=== PATIENT | female | born 1955 | race Caucasian/White ===

== ENCOUNTER → 2016-07-05 | Outpatient (CLI) | payer OTHER ==
[~2016-07-05] MED LIST: ASPIRIN 32325 MG/TAB PO; GLUCOPHAGE500 MG/TAB PO; LEVAQUIN 5500 MG/TA1 PO; LOPID 600M600 MG/TAB PO; MIRALAX PA17 GM/Dose PO; MULTI VITAMINS1 TAB PO; NORCO 325 MG-7.1 TAB PO; PEPCID AC 10MG10 MG PO; PRINIVIL40 MG PO; PROFERRIN ES12 MG PO; PROTONIX20 MG PO; ROXICODONE 55 MG/TAB PO; TYLENOL 500MG500 MG PO; ULTRAM 50MG TAB50 MG PO; VITAMIN C500 MG PO; ZOFRAN ODT4 MG PO
== END ==
LOC: MC.RAD 14:00
DX: Z12.31 Encounter for screening mammogram for malignant neoplasm of breast (principal)

== ENCOUNTER → 2017-08-14 | Outpatient (CLI) | payer BC | LOC: MC.RAD 13:18 | DX: Z12.31 Encounter for screening mammogram for malignant neoplasm of breast (principal) ==

== ENCOUNTER → 2017-08-27 | Outpatient (CLI) | payer BC ==
[2017-08-27 10:34] LABS: HEMATOCRIT 42.7 % (37.0-47.0); HEMOGLOBIN 14.1 g/dl (12.5-16.0); MEAN CELL VOLUME 86 fl (80.0-100.0); MEAN CORPUSCULAR HEMOGLOBIN 29 pg (27.0-31.0); MEAN CORPUSCULAR HGB CONC 33 g/dl (33.0-37.0); MEAN PLATELET VOLUME 8.7 fl (7.4-10.4); PLATELET COUNT 278 K/mm3 (130-400); RED BLOOD COUNT 4.95 M/mm3 (4.10-5.30); REDCELL DISTRIBUTION WIDTH-CV 13.6 % (11.5-14.5)
[2017-08-27 10:55] LABS: ERYTHROCYTE SEDIMENTATION RATE 8 mm/hr (0-30)
== END ==
LOC: COL.LAB 09:32
PROVIDERS: Orthopaedic Surgery
DX: M25.462 Effusion, left knee (principal); Z96.652 Presence of left artificial knee joint

== ENCOUNTER → 2018-08-15 | Outpatient (CLI) | payer BC | LOC: MC.RAD 08:15 | DX: Z12.31 Encounter for screening mammogram for malignant neoplasm of breast (principal) ==

== ENCOUNTER → 2019-12-11 | Outpatient (CLI) | payer BC | LOC: MC.RAD 08:08 | DX: Z12.31 Encounter for screening mammogram for malignant neoplasm of breast (principal) ==

== ENCOUNTER 2021-01-23 17:00 | Outpatient (RCR) | payer BC | END 2021-02-19 | disposition home or self-care (01) | LOC: PT.GENESIS | DX: M47.816 Spondylosis without myelopathy or radiculopathy, lumbar region (principal) ==

== ENCOUNTER → 2021-02-07 | Outpatient (CLI) | payer BC | LOC: MC.RAD 07:59 | DX: Z12.31 Encounter for screening mammogram for malignant neoplasm of breast (principal) ==

== ENCOUNTER 2021-08-13 23:44 | Inpatient (IN) | payer BC ==
[~2021-08-13] VITALS: Ht 177.8 cm; Wt 120.5 kg
[2021-08-14 00:06] LABS: COLLECTION METHOD CLEAN CATCH
[2021-08-14 00:17] LABS: MUCOUS Present (NOT PRESENT); PH 6 (5-8); SQUAMOUS EPITHELIAL 0-2 /hpf (0-10); URINE APPEARANCE Cloudy (CLEAR/HAZY); URINE BACTERIA Occasional /hpf (NONE SEEN); URINE BILIRUBIN Negative (NEGATIVE); URINE BLOOD 3+ (NEGATIVE); URINE COLOR Yellow (YELLOW); URINE GLUCOSE Negative (NEGATIVE); URINE KETONE Negative (NEGATIVE); URINE LEUKOCYTE ESTERASE 3+ (NEGATIVE); URINE NITRATE Negative (NEGATIVE); URINE PROTEIN(semi-quant) 2+ (NEGATIVE); URINE RBC >50 /hpf (0-2); URINE UROBILINOGEN Negative (NEGATIVE)
[2021-08-14 00:47] LABS: BASO % 0.3 % (0.0-2.0); EOS % 0.2 % (0.0-4.0); GRAN # 7.8 K/mm3 (1.4-6.5); HEMATOCRIT 42.6 % (37.0-47.0); HEMOGLOBIN 13.9 g/dl (12.5-16.0); LYMPH # 0.9 K/mm3 (1.2-3.4); MEAN CELL VOLUME 87 fl (80.0-100.0); MEAN CORPUSCULAR HEMOGLOBIN 28 pg (27-31); MEAN CORPUSCULAR HGB CONC 33 g/dl (33.0-37.0); MEAN PLATELET VOLUME 8.4 fl (7.4-10.4); MONO # 0.3 K/mm3 (0.1-0.6); MONO % 3.1 % (1.7-9.3); PLATELET COUNT 260 K/mm3 (130-400); RED BLOOD COUNT 4.92 M/mm3 (4.10-5.30); REDCELL DISTRIBUTION WIDTH-CV 13.7 % (11.5-14.5)
[2021-08-14 01:06] LABS: ALANINE AMINOTRANSFERASE 16 U/L (0-55); ALBUMIN 3.8 gm/dL (3.4-4.8); ALKALINE PHOSPHATASE 90 U/L (40-150); ANION GAP 15 mmol/L (7-16); AST,SGOT 14 U/L (5-34); BILIRUBIN,TOTAL 0.8 mg/dL (0.2-1.2); BLOOD UREA NITROGEN 27 mg/dL (10-20); CARBON DIOXIDE 17 mmol/L (23-31); CHLORIDE 105 mmol/L (98-107); GLUCOSE 227 mg/dL (70-99); LIPASE 19 U/L (8-78); POTASSIUM 4.2 mmol/L (3.5-4.5); SODIUM 137 mmol/L (136-145); TOTAL PROTEIN 7.2 gm/dL (6.2-8.1)
[2021-08-14 01:12] LABS: TROPONIN-I < 0.010 ng/mL (0.00-0.033)
[2021-08-14] MEDS ORDERED: ULTRAM 50MG TAB50 MG PO (01:47)
[2021-08-14] MEDS ORDERED: MEVACOR 20M20 MG/TAB PO ×2 (01:48)
[2021-08-14] MEDS ORDERED: PRINIVIL20 MG PO (01:49)
[2021-08-14] MEDS ORDERED: SYNTHROID0.088 MG/T PO (01:51)
[2021-08-14 04:25] VITALS: BP 115/53; PULSE 101; TEMP 98.4
[2021-08-14 06:38] LABS: BASO # 0.1 K/mm3 (0.0-0.2); BASO % 0.3 % (0.0-2.0); EOS % 0.1 % (0.0-4.0); GRAN # 11.3 K/mm3 (1.4-6.5); GRAN % 78.1 % (42.2-75.2); HEMATOCRIT 39.9 % (37.0-47.0); HEMOGLOBIN 12.8 g/dl (12.5-16.0); LYMPH # 1.5 K/mm3 (1.2-3.4); LYMPH % 10.2 % (20.0-51.0); MEAN CELL VOLUME 90 fl (80.0-100.0); MEAN CORPUSCULAR HEMOGLOBIN 29 pg (27-31); MEAN CORPUSCULAR HGB CONC 32 g/dl (33.0-37.0); MEAN PLATELET VOLUME 8.9 fl (7.4-10.4); MONO # 1.5 K/mm3 (0.1-0.6); MONO % 10.3 % (1.7-9.3); PLATELET COUNT 270 K/mm3 (130-400); RED BLOOD COUNT 4.46 M/mm3 (4.10-5.30); REDCELL DISTRIBUTION WIDTH-CV 13.8 % (11.5-14.5)
[2021-08-14 07:04] VITALS: BP 102/60; PULSE 92; TEMP 97.6
[2021-08-14 07:05] LABS: CALCIUM 8.2 mg/dL (8.4-10.2); CREATININE, serum 1.7 mg/dL (0.57-1.11); POTASSIUM 4.5 mmol/L (3.5-4.5)
--- NOTE | 2021-08-14 08:53 | NUR ---
Assessment completed, alert/oriented, vital signs stable, reports feeling "just blah", stated nausea is resolved and she is happy about that, WBC 14.5 / on rocephin, heart RRR, lungs CTA, no resp.dfficulty, patient is very fatigued and resting quietly, tolerting PO intake and also receiving IVF, denies other needs at this time, will continue to monitor
--- NOTE | 2021-08-14 09:12 | NUR ---
NEL met with the patient and her , Jean (ph#[phone]), to discuss discharge plan. The patient [place] of [place] with her and their grandson. She reports independence with ADLs and does not have any DME. The patient's PCP is Dr. Alley Mota and she receives her medications from [facility]. The patient does not have a DPOA-HC, but she was interested in obtaining a form. NEL provided. The patient plans on returning home with her upon discharge. No additional needs at this time. *Discharge plan: home with *
[2021-08-14 11:32] VITALS: BP 112/66; PULSE 73; TEMP 98
--- NOTE | 2021-08-14 12:18 | NUR ---
Sade: Temple Situation: [employer] Solderer stopped by room on rounds Background: PT was resting with in the room Assessment: [employer] Solderer has known the family for awhile and the PT needed rest A good and short conversation. Recommendation: [employer]derer will follow up as needed
[2021-08-14 15:17] VITALS: BP 123/56; PULSE 74; TEMP 98.2
[2021-08-14 19:57] VITALS: BP 122/59; PULSE 73; TEMP 98.2
[2021-08-15] VITALS (7 sets, daily range): BP systolic 120–154; BP diastolic 55–97; PULSE 75–79; TEMP 98–98.8
[2021-08-15 06:28] LABS: BASO % 0.4 % (0.0-2.0); EOS # 0.1 K/mm3 (0.0-0.7); EOS % 1.5 % (0.0-4.0); GRAN # 5.6 K/mm3 (1.4-6.5); GRAN % 67.3 % (42.2-75.2); HEMATOCRIT 39.1 % (37.0-47.0); HEMOGLOBIN 12.7 g/dl (12.5-16.0); LYMPH # 1.7 K/mm3 (1.2-3.4); LYMPH % 20.6 % (20.0-51.0); MEAN CELL VOLUME 89 fl (80.0-100.0); MEAN CORPUSCULAR HEMOGLOBIN 29 pg (27-31); MEAN CORPUSCULAR HGB CONC 33 g/dl (33.0-37.0); MONO # 0.8 K/mm3 (0.1-0.6); PLATELET COUNT 227 K/mm3 (130-400); RED BLOOD COUNT 4.38 M/mm3 (4.10-5.30); REDCELL DISTRIBUTION WIDTH-CV 13.8 % (11.5-14.5)
--- NOTE | 2021-08-15 06:30 | NUR ---
PT ASLEEP AT THIS TIME. WILL RETURN FOR ROUNDING. NO OTHER CONCERNS AT THIS TIME.
[2021-08-15 06:38] LABS: CALCIUM 8.7 mg/dL (8.4-10.2); CREATININE, serum 1.48 mg/dL (0.57-1.11); POTASSIUM 4.2 mmol/L (3.5-4.5)
--- NOTE | 2021-08-15 10:15 | NUR ---
Patient admitted with a PICC. dressing change done last by home health. cap changed and flushed with 10ml normal saline with good blood return noted. no signs or symptoms of IV complications noted. patient reported she is probably being discharged today.
--- NOTE | 2021-08-15 19:20 | NUR ---
PT HAD UNEVENTFUL DAY. DENIES ANY NEEDS. NO OTHER CONERNS. REPORT GIVEN TO TRENT WILL
[2021-08-16 04:24] VITALS: BP 130/79; PULSE 74; TEMP 98
[2021-08-16 06:36] LABS: BASO % 0.4 % (0.0-2.0); EOS # 0.1 K/mm3 (0.0-0.7); EOS % 1.5 % (0.0-4.0); GRAN # 4.4 K/mm3 (1.4-6.5); GRAN % 63.2 % (42.2-75.2); HEMATOCRIT 39.9 % (37.0-47.0); HEMOGLOBIN 12.6 g/dl (12.5-16.0); LYMPH # 1.5 K/mm3 (1.2-3.4); LYMPH % 21.8 % (20.0-51.0); MEAN CELL VOLUME 90 fl (80.0-100.0); MEAN CORPUSCULAR HEMOGLOBIN 29 pg (27-31); MEAN CORPUSCULAR HGB CONC 32 g/dl (33.0-37.0); MEAN PLATELET VOLUME 8.8 fl (7.4-10.4); MONO # 0.9 K/mm3 (0.1-0.6); MONO % 12.8 % (1.7-9.3); PLATELET COUNT 245 K/mm3 (130-400); RED BLOOD COUNT 4.42 M/mm3 (4.10-5.30); REDCELL DISTRIBUTION WIDTH-CV 13.4 % (11.5-14.5)
[2021-08-16 06:48] LABS: CREATININE, serum 1.33 mg/dL (0.57-1.11); POTASSIUM 4.3 mmol/L (3.5-4.5)
--- NOTE | 2021-08-16 06:54 | NUR ---
PT SLEEPING AT THIS TIME. WILL RETURN FOR HOURLY ROUNDS.
[2021-08-16 07:32] VITALS: BP 119/85; PULSE 77; TEMP 98.1
[2021-08-16] MEDS ORDERED: LEVAQUIN 750MG750 M1 PO (10:22)
[2021-08-16 11:10] VITALS: BP 151/72; PULSE 72; TEMP 98.8
== END 2021-08-16 12:30 | disposition home or self-care (01) | DRG 690 ==
LOC: COL.ER 23:44 → MEDICAL 08-14 01:36
PROVIDERS: Physician Assistant; Student in an Organized Health Care Education/Training Program; ADMIT Student in an Organized Health Care Education/Training Program
DX: N39.0 Urinary tract infection, site not specified (principal); N17.9 Acute kidney failure, unspecified; E78.00 Pure hypercholesterolemia, unspecified; E03.9 Hypothyroidism, unspecified; E11.65 Type 2 diabetes mellitus with hyperglycemia; B96.20 Unspecified Escherichia coli [E. coli] as the cause of diseases classified elsewhere; I12.9 Hypertensive chronic kidney disease with stage 1 through stage 4 chronic kidney disease, or unspecified chronic kidney disease; E11.22 Type 2 diabetes mellitus with diabetic chronic kidney disease; N18.9 Chronic kidney disease, unspecified; J32.9 Chronic sinusitis, unspecified; Z96.652 Presence of left artificial knee joint
CPT/HCPCS: 99223-AI; 99232-AI; 99239; J0696; J1644; J1815; J2270; J2405; J7030

== ENCOUNTER → 2021-08-30 | Outpatient (CLI) | payer BC ==
[~2021-08-30] MED LIST changes: +LEVAQUIN 750MG750 M1 PO; +MEVACOR 20M20 MG/TAB PO; +PRINIVIL20 MG PO; +SYNTHROID0.088 MG/T PO
== END ==
LOC: COL.RAD 13:58
DX: N28.1 Cyst of kidney, acquired (principal); N39.0 Urinary tract infection, site not specified

== ENCOUNTER → 2023-02-28 | Outpatient (CLI) | payer BC | LOC: CANSCHCLI → MC.RAD 10:29 | DX: Z12.31 Encounter for screening mammogram for malignant neoplasm of breast (principal) ==